=== PATIENT | male | born 1990 | race African-American/Black ===

== ENCOUNTER 2018-11-02 08:48 | Emergency (ER) | payer MEDICAID ==
[~2018-11-02] VITALS: Ht 167.6 cm; Wt 77.0 kg
[2018-11-02 10:00] LABS: BASOPHILS % 0.2 % (0.0-2.0); EOSINOPHILS % 2.2 % (0.0-5.0); HEMATOCRIT. 37.8 % (42.0-52.0); HEMOGLOBIN. 12.5 g/dL (14.0-18.0); MEAN CORPUSCULAR HEMOGLOBIN 28.2 pg (28.0-32.0); MEAN PLATELET VOLUME 8.2 fl (7.4-10.4); MONOCYTES % 5.7 % (2.0-8.0); NEUTROPHILS % 74.9 % (40.0-76.0); PLATELET 312 x1000/uL (130-400); RED BLOOD CELL COUNT 4.45 mill/uL (4.7-6.1); RED CELL DISTRIBUTION WIDTH 13.5 % (11.6-14.6)
[2018-11-02 10:05] LABS: CHLORIDE 106 mEq/L (98-107)
[2018-11-02 11:16] VITALS: BP 143/90
== END 2018-11-02 12:03 | disposition home or self-care (01) ==
LOC: ER 09:05
DX: E11.649 Type 2 diabetes mellitus with hypoglycemia without coma (principal); R41.82 Altered mental status, unspecified; Z79.4 Long term (current) use of insulin
CPT/HCPCS: 36415; 93005; 99284

== ENCOUNTER 2021-12-12 06:51 | Inpatient (IN) | payer MEDICAID ==
[~2021-12-12] VITALS: Ht 167.6 cm; Wt 77.1 kg
[2021-12-12] MEDS ORDERED: SODIUM CHLORIDE 0.9% 1,000 ML IV ONE (07:00)
[2021-12-12 07:19] LABS: CHLORIDE 107 mEq/L (98-107)
[2021-12-12 07:29] LABS: EOSINOPHILS % 2.2 % (0.0-5.0); HEMATOCRIT. 32.7 % (42.0-52.0); HEMOGLOBIN. 10.7 g/dL (14.0-18.0); LYMPHOCYTES % 25.3 % (20.0-50.0); MEAN CORPUSCULAR HEMOGLOBIN 30.7 pg (28.0-32.0); MEAN CORPUSCULAR VOLUME 93.3 fL (80.0-94.0); MONOCYTES % 5.5 % (2.0-8.0); PLATELET 261 x1000/uL (130-400); PROTHROMBIN TIME 11.1 sec (9.6-11.0)
[2021-12-12] MEDS ORDERED: PIPERACILLIN/TAZ 3.375G PREMIX 50 ML IV ONE (08:00)
[2021-12-12] MEDS ORDERED: VANCOMYCIN 1G PREMIX 200 ML IV ONE (08:00)
[2021-12-12] MEDS ORDERED: VANCOMYCIN 1GM PMX (XELLIA) 200 ML IV NR (08:30)
[2021-12-12 10:47] LABS: HEPATITIS B SURFACE ANTIGEN NEGATIVE
[2021-12-12] MEDS ORDERED: ZOLPIDEM TARTRATE 5MG TABLET PO PRN (11:15)
[2021-12-12] MEDS ORDERED: ACETAMINOPHEN 325MG TABLET PO PRN ×2 (11:15)
[2021-12-12] MEDS ORDERED: DEXTROSE 50% WATER 50ML SYRINGE IV PRN (11:15)
[2021-12-12] MEDS ORDERED: HYDRALAZINE 20MG/ML VIAL IV PRN (11:15)
[2021-12-12] MEDS ORDERED: CLONIDINE 0.1MG TABLET PO PRN (11:15)
[2021-12-12] MEDS ORDERED: DIPHENHYDRAMINE 50MG/ML VIAL IV PRN (11:15)
[2021-12-12] MEDS ORDERED: ONDANSETRON HCL 4MG/2ML INJ IV PRN (11:15)
[2021-12-12] MEDS: INSULIN LISPRO 100 UNITS/ML SUBCUT SCH ×3 (12:57→21:57)
[2021-12-12] MEDS: BLOOD SUGAR DIAGNOSTIC STRIP TEST SCH ×3 (12:57→21:48)
[2021-12-12 13:00] VITALS: BP 159/81
[2021-12-12] MEDS ORDERED: NALOXONE HCL 0.4MG/ML VIAL IV PRN (14:45)
[2021-12-12] MEDS ORDERED: TRAMADOL 50MG TABLET PO PRN ×2 (14:45→15:15)
[2021-12-12] MEDS: SODIUM CHLORIDE 0.9% INJ 3ML FLUSH IVF SCH ×2 (15:59→21:58)
[2021-12-12 16:00] VITALS: BP 150/88
[2021-12-12 20:00] VITALS: BP 156/78
[2021-12-12] MEDS: HYDRALAZINE HCL 100MG TABLET PO SCH (21:59)
[2021-12-12] MEDS ORDERED: INSULIN GLARGINE 100 UNITS/ML SUBCUT SCH (22:00)
[2021-12-13] VITALS: BP 135/75
[2021-12-13 04:00] VITALS: BP 141/80
[2021-12-13] MEDS: HYDRALAZINE HCL 100MG TABLET PO SCH (06:01)
[2021-12-13] MEDS: SODIUM CHLORIDE 0.9% INJ 3ML FLUSH IVF SCH ×2 (06:02→13:18)
[2021-12-13] MEDS: BLOOD SUGAR DIAGNOSTIC STRIP TEST SCH ×2 (06:25→11:40)
[2021-12-13 06:34] LABS: BASOPHILS % 0.7 % (0.0-2.0); EOSINOPHILS % 2.3 % (0.0-5.0); HEMOGLOBIN. 10.4 g/dL (14.0-18.0); LYMPHOCYTES % 16.7 % (20.0-50.0); MEAN CORPUSCULAR HEMOGLOBIN 30.4 pg (28.0-32.0); MEAN CORPUSCULAR VOLUME 90.4 fL (80.0-94.0); MEAN PLATELET VOLUME 8.2 fl (7.4-10.4); MONOCYTES % 6.9 % (2.0-8.0); NEUTROPHILS % 73.4 % (40.0-76.0); PLATELET 249 x1000/uL (130-400); RED BLOOD CELL COUNT 3.43 mill/uL (4.7-6.1); RED CELL DISTRIBUTION WIDTH 17.9 % (11.6-14.6)
[2021-12-13] MEDS: INSULIN LISPRO 100 UNITS/ML SUBCUT SCH ×2 (06:53→12:10)
[2021-12-13 08:00] VITALS: BP 128/80
[2021-12-13 12:00] VITALS: BP 158/87
[2021-12-13 14:12] VITALS: BP 126/72
== END 2021-12-13 14:25 | disposition home or self-care (01) | DRG 420 ==
LOC: ER 06:51 → EDBEDREQSVC 09:17 → EDBEDREQTM 09:17 → EDBEDREQ 09:17 → 7EST 09:31 → EDBEDREQ 09:36 → EDBEDREQTM 09:36 → ENRESERV 11:53
PROVIDERS: ADMIT Internal Medicine; ATTEND Internal Medicine
PROC: 5A1D70Z Performance of Urinary Filtration, Intermittent, Less than 6 Hours Per Day (ICD-10-PCS; principal; 2021-12-12)
PROC: 5A1D70Z Performance of Urinary Filtration, Intermittent, Less than 6 Hours Per Day (ICD-10-PCS; 2021-12-13)
DX: E11.649 Type 2 diabetes mellitus with hypoglycemia without coma (principal); G93.41 Metabolic encephalopathy; I12.0 Hypertensive chronic kidney disease with stage 5 chronic kidney disease or end stage renal disease; E11.22 Type 2 diabetes mellitus with diabetic chronic kidney disease; E87.5 Hyperkalemia; D64.9 Anemia, unspecified; E11.65 Type 2 diabetes mellitus with hyperglycemia; I51.7 Cardiomegaly; N18.6 End stage renal disease; Z99.2 Dependence on renal dialysis; Z83.3 Family history of diabetes mellitus
CPT/HCPCS: 36415; 71045; 80048; 80053; 82962; 83605; 84145; 84484; 85025; 86705; 86709; 86803; 87340; 93005; 99291; J1815; J2543; J3370; J7030

== ENCOUNTER 2022-01-09 18:35 | Inpatient (IN) | payer MEDICAID ==
[~2022-01-09] VITALS: Ht 167.6 cm; Wt 73.5 kg
[2022-01-09 21:32] LABS: BASOPHILS % 0.7 % (0.0-2.0); EOSINOPHILS % 1.9 % (0.0-5.0); HEMATOCRIT. 33.5 % (42.0-52.0); HEMOGLOBIN. 11.2 g/dL (14.0-18.0); LYMPHOCYTES % 29.1 % (20.0-50.0); MEAN CORPUSCULAR HEMOGLOBIN 30.1 pg (28.0-32.0); MEAN CORPUSCULAR VOLUME 90.4 fL (80.0-94.0); NEUTROPHILS % 61.3 % (40.0-76.0); PLATELET 259 x1000/uL (130-400); RED BLOOD CELL COUNT 3.71 mill/uL (4.7-6.1); RED CELL DISTRIBUTION WIDTH 17.2 % (11.6-14.6)
[2022-01-09 21:38] LABS: CHLORIDE 105 mEq/L (98-107)
[2022-01-09] MEDS ORDERED: INSULIN REGULAR (HUMULIN R) 300UNITS/3ML VIAL IV ONE (22:00)
[2022-01-09] MEDS ORDERED: DEXTROSE 50% WATER 50ML SYRINGE IV ONE (22:00)
[2022-01-09] MEDS ORDERED: CALCIUM GLUCONATE 100MG/ML 10ML VIAL IV ONE (22:00)
[2022-01-09 22:07] LABS: INR 2.7; PROTHROMBIN TIME 26.7 sec (9.6-11.0)
[2022-01-10] MEDS ORDERED: ACETAMINOPHEN 325MG TABLET PO PRN (03:15)
[2022-01-10] MEDS ORDERED: ONDANSETRON HCL 4MG/2ML INJ IV PRN (03:15)
[2022-01-10] MEDS ORDERED: DOCUSATE SODIUM 100MG CAPSULE PO PRN (03:15)
[2022-01-10] MEDS ORDERED: HYDROCODONE/ACETAMINOPHEN 5/325MG TABLET PO PRN (03:15)
[2022-01-10] MEDS ORDERED: DIPHENHYDRAMINE 50MG/ML VIAL IV PRN (03:15)
[2022-01-10] MEDS ORDERED: CLONIDINE 0.1MG TABLET PO PRN (03:15)
[2022-01-10] MEDS: AMLODIPINE 10MG TABLET PO SCH ×2 (03:48→08:28)
[2022-01-10 04:18] VITALS: BP 181/98
[2022-01-10] MEDS ORDERED: [UNRECOGNIZED DRUG - OTHER] (07:37)
[2022-01-10] MEDS ORDERED: atorvastatin (07:37)
[2022-01-10] MEDS ORDERED: isosorbide (07:37)
[2022-01-10] MEDS ORDERED: humalog (07:37)
[2022-01-10] MEDS ORDERED: HYDR100T26 PO (07:37)
[2022-01-10] MEDS ORDERED: VITAMIN RENAL (07:37)
[2022-01-10] MEDS ORDERED: metoprolol (07:37)
[2022-01-10] MEDS ORDERED: DEXTROSE 50% WATER 50ML SYRINGE IV PRN (08:00)
[2022-01-10] MEDS ORDERED: SODIUM POLYSTYRENE SULFONATE 15 G/60 ML BOT PO NR (09:15)
[2022-01-10 12:00] VITALS: BP 142/74
[2022-01-10] MEDS: INSULIN LISPRO 100 UNITS/ML SUBCUT SCH ×3 (12:10→21:00)
[2022-01-10] MEDS: BLOOD SUGAR DIAGNOSTIC STRIP TEST SCH ×3 (12:16→21:33)
[2022-01-10 15:02] LABS: HEPATITIS B SURFACE ANTIGEN NEGATIVE
[2022-01-10 20:00] VITALS: BP 146/88
[2022-01-11] VITALS: BP 145/88
[2022-01-11 04:00] VITALS: BP 136/72
[2022-01-11] MEDS: BLOOD SUGAR DIAGNOSTIC STRIP TEST SCH (06:44)
[2022-01-11] MEDS: INSULIN LISPRO 100 UNITS/ML SUBCUT SCH (07:17)
[2022-01-11 08:00] VITALS: BP 131/71
[2022-01-11 08:04] LABS: INR 1.1; PROTHROMBIN TIME 11.3 sec (9.6-11.0)
[2022-01-11 08:07] LABS: BASOPHILS % 0.7 % (0.0-2.0); HEMATOCRIT. 36.5 % (42.0-52.0); LYMPHOCYTES % 20.1 % (20.0-50.0); MEAN CORPUSCULAR HEMOGLOBIN 30.2 pg (28.0-32.0); MEAN CORPUSCULAR VOLUME 91.6 fL (80.0-94.0); MEAN PLATELET VOLUME 8.3 fl (7.4-10.4); MONOCYTES % 6.9 % (2.0-8.0); NEUTROPHILS % 68.3 % (40.0-76.0); PLATELET 282 x1000/uL (130-400); RED BLOOD CELL COUNT 3.98 mill/uL (4.7-6.1); RED CELL DISTRIBUTION WIDTH 17.6 % (11.6-14.6)
[2022-01-11 08:15] LABS: CHLORIDE 102 mEq/L (98-107)
[2022-01-11] MEDS: AMLODIPINE 10MG TABLET PO SCH (08:58)
[2022-01-11 10:00] VITALS: BP 131/71
== END 2022-01-11 10:30 | disposition home or self-care (01) | DRG 425 ==
LOC: ER 18:35 → MICUSO 23:14 → 7EST 23:49
PROVIDERS: ADMIT Hospitalist; ATTEND Hospitalist
PROC: 5A1D70Z Performance of Urinary Filtration, Intermittent, Less than 6 Hours Per Day (ICD-10-PCS; principal; 2022-01-10)
DX: E87.5 Hyperkalemia (principal); I50.33 Acute on chronic diastolic (congestive) heart failure; N18.6 End stage renal disease; E10.22 Type 1 diabetes mellitus with diabetic chronic kidney disease; D63.1 Anemia in chronic kidney disease; I13.2 Hypertensive heart and chronic kidney disease with heart failure and with stage 5 chronic kidney disease, or end stage renal disease; Z20.822 Contact with and (suspected) exposure to COVID-19; Z99.2 Dependence on renal dialysis; Z86.16 Personal history of COVID-19
CPT/HCPCS: 36415; 71045; 80053; 82962; 83036; 83880; 84484; 85025; 86705; 86709; 86803; 87340; 87426; 93005; 99285; C9803; J0610; J1815

== ENCOUNTER 2022-02-22 06:12 | Emergency (ER) | payer MEDICAID ==
[~2022-02-22] VITALS: Ht 180.3 cm; Wt 80.0 kg
[~2022-02-22 06:12] MED LIST: HYDR100T26 PO; VITAMIN RENAL; [UNRECOGNIZED DRUG - OTHER]; atorvastatin; humalog; isosorbide; metoprolol
[2022-02-22 07:24] LABS: BASOPHILS % 0.8 % (0.0-2.0); EOSINOPHILS % 1.9 % (0.0-5.0); HEMATOCRIT. 40.2 % (42.0-52.0); HEMOGLOBIN. 13.1 g/dL (14.0-18.0); LYMPHOCYTES % 14.6 % (20.0-50.0); MEAN CORPUSCULAR HEMOGLOBIN 31.5 pg (28.0-32.0); MEAN CORPUSCULAR VOLUME 97.1 fL (80.0-94.0); MEAN PLATELET VOLUME 8.1 fl (7.4-10.4); MONOCYTES % 3.9 % (2.0-8.0); NEUTROPHILS % 78.8 % (40.0-76.0); PLATELET 256 x1000/uL (130-400); RED BLOOD CELL COUNT 4.14 mill/uL (4.7-6.1); RED CELL DISTRIBUTION WIDTH 16.2 % (11.6-14.6)
[2022-02-22 07:34] LABS: CHLORIDE 105 mEq/L (98-107)
[2022-02-22 11:12] VITALS: BP 187/105
== END 2022-02-22 11:13 | disposition home or self-care (01) ==
LOC: ER 06:12
DX: E11.65 Type 2 diabetes mellitus with hyperglycemia (principal); G93.41 Metabolic encephalopathy; E11.22 Type 2 diabetes mellitus with diabetic chronic kidney disease; I12.0 Hypertensive chronic kidney disease with stage 5 chronic kidney disease or end stage renal disease; N18.6 End stage renal disease; Z99.2 Dependence on renal dialysis; Z79.4 Long term (current) use of insulin
CPT/HCPCS: 36415; 71045; 80053; 82962; 85025; 93005; 99285

== ENCOUNTER 2022-09-08 19:56 | Emergency (ER) | payer MEDICAID ==
[~2022-09-08] VITALS: Ht 167.6 cm; Wt 70.3 kg
[2022-09-08] MEDS ORDERED: HYDROCODONE/ACETAMINOPHEN 10/325MG TABLET PO ONE (21:45)
[2022-09-08] MEDS ORDERED: HYDROCODONE/ACETAMINOPHEN 10/325MG TABLET PO NR (23:30)
[2022-09-09] MEDS ORDERED: ACET-2708 MT (01:04)
[2022-09-09 02:11] VITALS: BP 160/100
== END 2022-09-09 02:01 | disposition home or self-care (01) ==
LOC: ER 19:56
DX: S62.306A Unspecified fracture of fifth metacarpal bone, right hand, initial encounter for closed fracture (principal); W18.39XA Other fall on same level, initial encounter; Y93.89 Activity, other specified; Y92.89 Other specified places as the place of occurrence of the external cause; Y99.8 Other external cause status; I12.0 Hypertensive chronic kidney disease with stage 5 chronic kidney disease or end stage renal disease; E11.22 Type 2 diabetes mellitus with diabetic chronic kidney disease; N18.6 End stage renal disease; Z99.2 Dependence on renal dialysis; Z79.899 Other long term (current) drug therapy
CPT/HCPCS: 29125; 73110; 73130; 99284